=== PATIENT | male | born 2000 | race African-American/Black ===

== ENCOUNTER 2019-12-23 13:00 | Emergency (ER) | payer MEDICAID ==
[~2019-12-23] VITALS: Ht 180.3 cm; Wt 90.0 kg
[2019-12-23 13:02] VITALS: BP 120/63
[2019-12-23] MEDS ORDERED: ONDANSETRON HCL 4MG/2ML INJ IV ONE (13:45)
[2019-12-23] MEDS ORDERED: FAMOTIDINE 20MG/2ML VIAL IV ONE (13:45)
[2019-12-23] MEDS ORDERED: SODIUM CHLORIDE 0.9% 1,000 ML IV ONE (13:45)
[2019-12-23 14:58] LABS: BASOPHILS % 0.3 % (0.0-2.0); EOSINOPHILS % 0.1 % (0.0-5.0); HEMATOCRIT. 46.5 % (42.0-52.0); HEMOGLOBIN. 15.7 g/dL (14.0-18.0); MEAN CORPUSCULAR VOLUME 79.9 fL (80.0-94.0); MEAN PLATELET VOLUME 9.7 fl (7.4-10.4); MONOCYTES % 7.3 % (2.0-8.0); NEUTROPHILS % 78.3 % (40.0-76.0); PLATELET 225 x1000/uL (130-400); RED BLOOD CELL COUNT 5.82 mill/uL (4.7-6.1); RED CELL DISTRIBUTION WIDTH 12.9 % (11.6-14.6)
[2019-12-23 15:09] LABS: CHLORIDE 109 mEq/L (98-107)
[2019-12-23 15:40] LABS: CLARITY URINE CLEAR (CLEAR); COLOR URINE YELLOW (YELLOW); KETONES URINE 2+ (NEGATIVE); LEUKOCYTE ESTERASE URINE TRACE (NEGATIVE); NITRITE URINE NEGATIVE (NEGATIVE); OCCULT BLOOD URINE NEGATIVE (NEGATIVE); PH URINE 5.5 (4.5-8.0); PROTEIN URINE TRACE (NEGATIVE); SPECIFIC GRAVITY URINE 1.026 (1.005-1.030)
== END 2019-12-23 15:38 | disposition home or self-care (01) ==
LOC: ER 13:28
DX: Z03.818 Encounter for observation for suspected exposure to other biological agents ruled out (principal); R10.84 Generalized abdominal pain
CPT/HCPCS: 36415; 71045; 80053; 81003; 83690; 85025; 93005; 96361; 96374; 96375; 99285; C9803; J2405; J3490; J7030; U0003; 87635

== ENCOUNTER 2020-09-19 11:07 | Emergency (ER) | payer MEDICAID, OTHER ==
[~2020-09-19] VITALS: Ht 180.3 cm; Wt 86.0 kg
[2020-09-19 12:06] LABS: BASOPHILS % 0.6 % (0.0-2.0); EOSINOPHILS % 0.9 % (0.0-5.0); HEMATOCRIT. 41.4 % (42.0-52.0); HEMOGLOBIN. 14.2 g/dL (14.0-18.0); LYMPHOCYTES % 21.7 % (20.0-50.0); MEAN CORPUSCULAR HEMOGLOBIN 27.8 pg (28.0-32.0); MEAN CORPUSCULAR VOLUME 81.5 fL (80.0-94.0); MEAN PLATELET VOLUME 9.3 fl (7.4-10.4); MONOCYTES % 8.8 % (2.0-8.0); PLATELET 182 x1000/uL (130-400); RED BLOOD CELL COUNT 5.08 mill/uL (4.7-6.1); RED CELL DISTRIBUTION WIDTH 13.2 % (11.6-14.6)
[2020-09-19 12:13] LABS: CHLORIDE 109 mEq/L (98-107)
[2020-09-19] MEDS ORDERED: KETOROLAC 15MG/ML VIAL IV NR (12:15)
[2020-09-19] MEDS ORDERED: IBUP-2029 MT (13:06)
[2020-09-19] MEDS ORDERED: KETOROLAC 60MG/2ML VIAL IM ONE (13:15)
[2020-09-19 13:18] VITALS: BP 119/78
== END 2020-09-19 13:26 | disposition home or self-care (01) ==
LOC: ER 11:07
DX: R07.89 Other chest pain (principal)
CPT/HCPCS: 36415; 71045; 80053; 85025; 85379; 93005; 96372; 99285; J1885

== ENCOUNTER 2021-09-26 15:51 | Emergency (ER) | payer BC, MEDICAID, OTHER ==
[~2021-09-26] VITALS: Ht 182.9 cm; Wt 86.0 kg
[~2021-09-26 15:51] MED LIST: IBUP-2029 MT
[2021-09-26 17:24] LABS: BASOPHILS % 0.4 % (0.0-2.0); EOSINOPHILS % 0.1 % (0.0-5.0); HEMATOCRIT. 43.9 % (42.0-52.0); HEMOGLOBIN. 14.7 g/dL (14.0-18.0); LYMPHOCYTES % 15.9 % (20.0-50.0); MEAN CORPUSCULAR HEMOGLOBIN 26.6 pg (28.0-32.0); MEAN CORPUSCULAR VOLUME 79.4 fL (80.0-94.0); MEAN PLATELET VOLUME 9.1 fl (7.4-10.4); MONOCYTES % 7.6 % (2.0-8.0); PLATELET 203 x1000/uL (130-400); RED BLOOD CELL COUNT 5.53 mill/uL (4.7-6.1); RED CELL DISTRIBUTION WIDTH 12.9 % (11.6-14.6)
[2021-09-26 17:31] LABS: CHLORIDE 108 mEq/L (98-107)
[2021-09-26] MEDS ORDERED: MAGNESIUM/ALUMINUM HYDROXIDE/SIMETHICONE 30ML UDC PO ONE (20:30)
[2021-09-26] MEDS ORDERED: FAMOTIDINE 20MG TABLET PO ONE (20:30)
[2021-09-26] MEDS ORDERED: ACETAMINOPHEN 325MG TABLET PO ONE (20:30)
[2021-09-26 20:49] LABS: CLARITY URINE CLEAR (CLEAR); COLOR URINE YELLOW (YELLOW); KETONES URINE 2+ (NEGATIVE); LEUKOCYTE ESTERASE URINE NEGATIVE (NEGATIVE); NITRITE URINE NEGATIVE (NEGATIVE); OCCULT BLOOD URINE NEGATIVE (NEGATIVE); PROTEIN URINE TRACE (NEGATIVE); SPECIFIC GRAVITY URINE 1.015 (1.005-1.030); UROBILINOGEN URINE 0.2 E.U./dL (0.2-1.0)
[2021-09-26] MEDS ORDERED: MAGNESIUM/ALUMINUM HYDROXIDE/SIMETHICONE 30ML UDC PO NR (22:15)
[2021-09-26] MEDS ORDERED: ACETAMINOPHEN 325MG TABLET PO NR (22:15)
[2021-09-26] MEDS ORDERED: FAMOTIDINE 20MG TABLET PO NR (22:15)
[2021-09-27] MEDS ORDERED: FAMO-135 PO (01:39)
[2021-09-27 01:57] VITALS: BP 128/92
== END 2021-09-27 02:00 | disposition home or self-care (01) ==
LOC: ER 16:05
DX: R10.9 Unspecified abdominal pain (principal)
CPT/HCPCS: 36415; 74176; 80053; 81003; 85025; 99284